=== PATIENT | female | born 1960 | race Caucasian/White ===

== ENCOUNTER → 2020-01-27 | Outpatient (CLI) | payer BC ==
[2015-03-29 07:59] VITALS: BP 132/72
[~2020-01-27] MED LIST: CRESTOR10 MG PO; LINZESS145 MCG PO; MOME17SP NS; MULT-121 PO
== END | disposition home or self-care (01) ==
LOC: LAB 13:14
PROVIDERS: ATTEND Surgery
DX: Z01.818 Encounter for other preprocedural examination (principal); Z11.59 Encounter for screening for other viral diseases; K80.20 Calculus of gallbladder without cholecystitis without obstruction; Z88.6 Allergy status to analgesic agent
CPT/HCPCS: U0003-CS

== ENCOUNTER 2020-02-02 06:04 | Day surgery (SDC) | payer BC ==
[~2020-02-02] VITALS: Ht 165.1 cm; Wt 61.5 kg
[~2020-02-02 06:04] MED LIST changes: +ceFAZolin SODIUM IV Push 1 GM VIAL. IVP ONE
[2020-02-02] MEDS ORDERED: DEXAMETHASONE SOD PHOS 4 MG/ML VIAL ONE ×2 (06:11→07:49)
[2020-02-02] MEDS ORDERED: ONDANSETRON PF 4 MG/2 ML VIAL. ONE ×2 (06:11→07:49)
[2020-02-02] MEDS ORDERED: LIDOCAINE 2% PF 5 ML VIAL. ONE (06:11)
[2020-02-02] MEDS ORDERED: PROPOFOL 10 MG/ML (20ML) VIAL. IV ONE (06:11)
[2020-02-02] MEDS ORDERED: ROCURONIUM 50 MG/5 ML VIAL. ONE (06:11)
[2020-02-02] MEDS ORDERED: SUCCINYLCHOLINE 200 MG/10 ML VIAL. ONE (06:13)
[2020-02-02] MEDS ORDERED: fentaNYL PF VIAL 250 MCG/5 ML VIAL ONE (06:52)
[2020-02-02] MEDS ORDERED: MIDAZOLAM HCL/PF 2 MG/2 ML VIAL. ONE (06:53)
[2020-02-02] MEDS ORDERED: IOHEXOL 300 MG/ML 50 ML VIAL. ONE (06:56)
[2020-02-02] MEDS ORDERED: SURGICEL HEMOSTAT 4X8 EACH. ONE (06:56)
[2020-02-02] MEDS ORDERED: BUPIVACAINE MPF 0.5% 30 ML VIAL. ONE (06:56)
[2020-02-02] MEDS ORDERED: IV RINGERS,LACTATED 1000ML 1,000 ML IV SCH (07:00)
[2020-02-02] MEDS ORDERED: ONDANSETRON PF 4 MG/2 ML VIAL. IV PRN (07:00)
[2020-02-02] MEDS ORDERED: PROCHLORPERAZINE 10 MG/2 ML VIAL. IV PRN (07:00)
[2020-02-02] MEDS ORDERED: fentaNYL PF VIAL 100 MCG/2 ML VIAL IV PRN ×2 (07:00)
[2020-02-02] MEDS ORDERED: NEOSTIGMINE METHYLSULFATE 5 MG/5 ML SYRINGE. ONE (08:04)
[2020-02-02] MEDS ORDERED: GLYCOPYRROLATE 1 MG/5 ML VIAL. ONE (08:05)
[2020-02-02] MEDS ORDERED: KETOROLAC 30 MG/ML VIAL. ONE (08:28)
[2020-02-02] MEDS ORDERED: SEVOFLURANE 31 TO 60 MINUTES. IH ONE (08:29)
--- NOTE | 2020-02-02 08:45 | RAD ---
Intraoperative cholangiogram INDICATION: Cholecystectomy TECHNIQUE: 3 images were acquired intraoperatively during injection of the cystic duct stump. Total fluoroscopy time 0.25 minutes. FINDINGS: Multiple laparoscopic ports in the included field of view are present. Injection of the cystic duct stump shows opacification of the intrahepatic biliary radicles on the right and emptying of the common bile duct into the duodenum. Filling of the left-sided hepatic bile ducts was not shown. IMPRESSION: Intraoperative cholangiogram showing patency of the common bile duct and additional findings as described. Electronically signed by: Salina Ricci MD (02/02/2020 8:42 AM) [id number]
--- NOTE | 2020-02-02 08:51 | PDOC4 ---
Operative Note Operative Note Operative Note: Preoperative Diagnosis: Symptomatic cholelithiasis Postoperative Diagnosis: Same Procedure: Laparoscopic cholecystectomy with intraoperative cholangiogram Surgeons: Dhruv Insert Operator: Chandler MORELOS Anesthesia: Gen. Estimated Blood Loss: 10 mL Specimen: Gallbladder to pathology Drains: None Complications: None Indications: The patient is a 59-year-old female who was referred with suspected symptomatic cholelithiasis. Surgical treatment was offered by means of a laparoscopic cholecystectomy. The risks of surgery were discussed which include bleeding, infection, bile duct injury, bile leak, pain, the potential for additional surgeries or procedures. The patient understands and would like to proceed. Description: The patient was taken to the operating room and laid supine on the operating table. General anesthesia was performed. The abdomen was prepped with ChloraPrep and draped in a standard surgical fashion. A small infraumbilical incision was made with a scalpel. The Veress needle was then inserted and a pneumoperitoneum was then created. A 5 mm trocar was then inserted and the laparoscope was introduced. In the upper midabdomen a 5 mm trocar was inserted and in the right upper quadrant two 2.3 mm mini lap graspers were inserted. The gallbladder was retracted cephalad. The cystic duct was dissected free from surrounding tissues. One clip was placed on the duct near the gallbladder junction. An opening was made in the duct and a cholangiocatheter placed within and secured with a clip. Using contrast dye and fluoroscopy an intraoperative cholangiogram was performed that appeared unremarkable. The clip and catheter were then withdrawn. Three clips were placed on the cystic duct and it was divided. The cystic artery was then identified, dissected free, doubly clipped and divided as well. The gallbladder was then mobilized away from the liver with cautery. The umbilical 5 millimeter trocar was exchanged for an 11 millimeter trocar. The gallbladder was then placed in an endoscopic bag and extracted at the umbilical trocar site. The fascia there was closed with an 0 Vicryl suture. All blood and irrigation fluid was suctioned and hemostasis was good. The remaining ports were removed and the pneumoperitoneum was relieved. The skin incisions were injected with half percent Marcaine with epinephrine, and all were closed using 4-0 Monocryl suture. Steri-Strips and dressings were then applied. The patient tolerated the procedure well and was sent to the recovery room in stable condition. At the end of the case all counts were correct. ASHOK GOMEZ MD Feb 02, 2020 08:51
--- NOTE | 2020-02-02 08:53 | DISCH ---
DISCHARGE INSTRUCTIONS Condition on Discharge Condition on Discharge: Stable Activity After Discharge Activity Instructions for Disc: Other, see below (no lifting over 20 lbs X 2 weeks) Driving Instructions after Dis: Other, see below (no driving while taking pain meds) Diet after Discharge Diet after Discharge: Regular Wound Incision Care Wound/Incision Care: Other, see below (may remove bandaids tomorrow and shower) Follow-Up Follow up with: Dr Gomez in office in 2 weeks, call for appointment [phone] ASHOK GOMEZ MD Feb 02, 2020 08:53
[2020-02-02] MEDS ORDERED: HYDR-3164 PO (09:23)
[2020-02-02] MEDS ORDERED: HYDROcodone/APAP 5/325MG 1 TAB TABLET PO ONE (09:30)
[2020-02-02] MEDS ORDERED: HYDROcodone/APAP 5/325MG 1 TAB TABLET ONE (09:47)
[2020-02-02 09:55] VITALS: BP 139/72
--- NOTE | 2020-02-08 10:07 | PATHOLOGY ---
[facility] Accession Number: [id number] . 01 Material submitted: . gallbladder - GALLBLADDER AND CONTENTS . 01 Clinical history: . SYMPTOMATIC CHOLELITHIASIS . 02 Diagnosis: Gallbladder, excision: - Chronic cholecystitis. - Adenomyomatous nodule, with focal pyloric metaplasia. - Lithiasis. - Negative for dysplasia and malignancy. . (MLK:mehdi; 02/08/2020) QMS 02/08/2020 0918 Local . 02 Electronically signed: . Srikanth Boyd MD, Pathologist NPI- [id number] . 01 Gross description: . The specimen is received fresh in a sealed laparoscopic bag, and the bag is placed into formalin, labeled "Shanel Vargas, gallbladder and contents". Received is an intact gallbladder measuring 7.5 x 3.2 x 2.6 cm in greatest dimensions displaying a muro-green serosal surface. The fundus of the gallbladder is firm and the surrounding serosa is inked black. Opening the specimen reveals a velvety, bile-stained mucosa with a gallbladder wall thickness of 0.1 cm. Several small black, friable calculi are present. The firm area at the fundal aspect displays a multilocular cystic structure measuring 1.9 x 1.7 cm in maximum dimensions. Ivf Embryologist sections, to include the proximal margin, are submitted in cassette A1. A traffic representative section of the cystic structure is submitted in cassette A2. (CAA; 02/03/2020) QAC/QAC 02/03/2020 1041 Local . 02 Pathologist provided ICD-10: K80.10 . 02 CPT . 991377 Specimen Comment: A courtesy copy of this report has been sent to [phone], [phone] Specimen Comment: [id number] Specimen Comment: Report sent to / DR KO Performed at: 01 [facility] [address] [id number] MD Enrique Campbell MD Phone: [phone] Performed at: 02 [facility] [address] [id number] MD Lonnie Cheema MD Phone: [phone]
== END 2020-02-02 10:30 | disposition home or self-care (01) ==
LOC: SURG 06:04
PROVIDERS: ATTEND Surgery
DX: K80.10 Calculus of gallbladder with chronic cholecystitis without obstruction (principal); F17.210 Nicotine dependence, cigarettes, uncomplicated; Z72.89 Other problems related to lifestyle; Z79.899 Other long term (current) drug therapy; Z88.8 Allergy status to other drugs, medicaments and biological substances
CPT/HCPCS: 47563; 74300; A4314; A7015; J0330; J0690; J1100; J1885; J2250; J2405; J2704; J2710; J3010; J3490; J7030; J7120; Q9967; 88304

== ENCOUNTER 2021-09-17 09:08 | Inpatient (IN) | payer BC ==
[2021-09-17] VITALS (7 sets, daily range): BP systolic 111–151; BP diastolic 45–75
[~2021-09-17] VITALS: Ht 165.1 cm; Wt 66.2 kg
[~2021-09-17 09:08] MED LIST changes: +HYDR-3164 PO; -MOME17SP NS; +MOME17SP5 NS; -ceFAZolin SODIUM IV Push 1 GM VIAL. IVP ONE
[2021-09-17] MEDS ORDERED: IV RINGERS,LACTATED 1000ML 1,000 ML IV ONE (09:30)
--- NOTE | 2021-09-17 09:42 | EKG ---
[facility] [address] [place] [address] Test Date: 2021-09-17 Test Time: 09:30:51 Pat Name: JANKI CRUZ Department: Room: Gender: F Donor Recruitment Manager: : 1960 Requested By: RADHA SULLIVAN Order Number: [id number] Reading MD: Tian Rodríguez Measurements Intervals [place] Rate: 88 P: 180 [place]: 134 QRS: 21 QRSD: 82 T: 68 QT: 370 QTc: 451 Interpretive Statements SINUS RHYTHM Electronically Signed On 09-21-2021 13:50:45 CDT by Tian Rodríguez
--- NOTE | 2021-09-17 09:42 | PHYS DOC ---
Past Medical History Past Medical History: High Cholesterol, Hypertension, Sinusitis Additional Past Medical Histor: carotid artery stenosis (50% and 69%) Past Surgical History: Cholecystectomy, Tubal ligation Additional Past Surgical Histo: ankle repair, stents RLE General Adult EDM: Chief Complaint: MULTIPLE COMPLAINTS HPI: HPI: Patient is a 60 year old female who presents with 6-week history of lightheadedness and 3-week history of facial pressure and tingling. Patient reports she has been treated with a course of several different antibiotics to treat a sinus infection over the past month or so. She underwent CT imaging for the sinus infection, which was evaluated by ENT specialist. Additionally, last week she had carotid ultrasound that showed 50% blockage and 69% blockage. The nurse practitioner in her primary care doctor's office informed her she would need to see a "machine heel seat laster." She has an appointment with vascular on the of this month and her machine heel seat laster, Dr. Rodríguez, on the of this month. While patient has had recurrent symptoms for a number of weeks, today she has noticed she is more short of breath and is having a harder time ambulating comfortably. Patient reports that when she stands up, her blood pressure and heart rate go up. She reports an associated dry mouth. Patient denies any and all pain, cough, upper and lower extremity paresthesias or weakness. Patient was seen day before yesterday at [place] emergency department for chest discomfort. Per chart review, patient did not complain of lightheadedness or facial tingling at that time. Review of Systems: Review of Systems: Constitutional: Denies fever or chills Eyes: Denies change in visual acuity, visual field deficits or discharge HENT: Denies ear pain or sore throat Respiratory: See HPI Cardiovascular: See HPI GI: Denies abdominal pain, nausea, vomiting, bloody stools or diarrhea : Denies dysuria or hematuria Musculoskeletal: Denies back pain or joint pain Integument: Denies rash or other skin lesion Neurologic: Denies headache, focal weakness or sensory changes Heart Score: C/O Chest Pain: No HEART Score for Chest Pain: HEART Score for Chest Pain Response (Comments) Value History Slighlty/Non-Suspicious 0 ECG Normal 0 Age >45 - < 65 1 Risk Factors >3 Risk Factors or Hx CAD 2 Troponin < Normal Limit 0 Total 3 Current Medications: Current Medications Medications (Trade) Dose Ordered Sig/Rosie Start Time Stop Time Status Last Admin Dose Admin Ringer's Solution 1,000 ml @ 1,000 mls/hr 1X ONCE 09/17/21 09:30 09/17/21 10:29 UNV Allergies: Allergies: Allergies Coded Allergies Type Severity Reaction Last Updated Verified acetaminophen Allergy Intermediate Rash 03/29/15 Yes oxycodone Allergy Intermediate Rash 03/29/15 Yes shrimp Allergy Unknown Unknown 01/31/20 Yes latex Adverse Reaction Intermediate Itching 01/31/20 Yes Physical Exam: PE: Constitutional: Well developed, well nourished, no acute distress, non-toxic appearance. HENT: Normocephalic, atraumatic, bilateral external ears normal, oropharynx moist, no oral exudates, nose normal. Eyes: PERRL, EOMI, conjunctiva normal, no discharge. Neck: Normal range of motion, no stridor. Cardiovascular: Heart regular rate and rhythm. No apparent murmurs, rubs or gallops. Lungs & Thorax: Bilateral breath sounds clear to auscultation. Extremities: No cyanosis, no clubbing, ROM intact, no edema. Neurologic: Alert and oriented x4, normal motor function, normal sensory function, no focal deficits noted. Current Patient Data: Vital Signs: Vital Signs Date Time Temp Pulse Resp B/P (MAP) Pulse Ox O2 Delivery O2 Flow Rate FiO2 09/17/21 12:57 82 18 139/60 (86) 97 Room Air 09/17/21 11:30 80 17 129/62 (84) 96 09/17/21 11:00 74 20 135/64 (87) 96 09/17/21 10:30 78 18 129/64 (85) 96 09/17/21 10:00 82 15 140/68 (92) 95 09/17/21 09:15 98.2 87 17 174/79 (110) 97 Room Air 98.2 EKG: EKG: EKG Interpreted by Dr. Valente at 0931: Regular rate and rhythm 88 bpm with no ectopic beats. MA 134 ms/QT 370 ms. No STEMI. Radiology/Procedures: Radiology/Procedures: PROCEDURE: CHEST AP ONLY XR CHEST 1V CLINICAL INDICATIONS: Shortness of breath, lightheaded / Spl. Instructions: / History: COMPARISON: None available. Findings: No acute lung infiltrate or pleural effusion or pulmonary edema or lung mass or pneumothorax is seen. The heart size, pulmonary vasculature, mediastinum and both meenakshi are unremarkable. IMPRESSION: No acute radiographic abnormality is seen. Electronically signed by: Asad Couch MD (09/17/2021 9:55 AM) [id number] Course & Med Decision Making: Course & Med Decision Making Pertinent Labs and Imaging studies reviewed. (See chart for details) Patient is a 60-year-old female who presents with multiple complaints. She was evaluated for chest pain day before yesterday at [facility]. While she denies chest pain today, she does complain of lightheadedness and near syncope. After fluid administration, patient symptoms are not improved. Labs are not terribly concerning, however with patient symptomology, will admit to hospitalist service for further evaluation of presyncope. Dr. Ramirez, hospitalist, gladly accepts patient for admission. Dragon Disclaimer: Dragon Disclaimer: This electronic medical record was generated, in whole or in part, using a voice recognition dictation system. Departure Departure Impression: Primary Impression: Near syncope Additional Impressions: Bilateral carotid artery stenosis Sinusitis Qualified Codes: J01.90 - Acute sinusitis, unspecified Disposition: ADMITTED INPATIENT Admitting Physician: CARRIE (James) Referrals: KAPIL KO DO (PCP) RADHA SULLIVAN Sep 17, 2021 09:42
--- NOTE | 2021-09-17 09:58 | RAD ---
XR CHEST 1V CLINICAL INDICATIONS: Shortness of breath, lightheaded / Spl. Instructions: / History: COMPARISON: None available. Findings: No acute lung infiltrate or pleural effusion or pulmonary edema or lung mass or pneumothora x is seen. The heart size, pulmonary vasculature, mediastinum and both meenakshi are unremarkable. IMPRESSION: No acute radiographic abnormality is seen. Electronically signed by: Asad Couch MD (09/17/2021 9:55 AM) [id number]
[2021-09-17 10:18] LABS: BASO % 0 % (0-3); EOS % 0 % (0-3); HEMATOCRIT 43.2 % (36.0-47.0); HEMOGLOBIN 14.4 g/dL (12.0-15.5); LYMPH # 1.4 x10^3/uL (1.0-4.8); LYMPH % 12 % (24-48); MEAN CORPUSCULAR HEMOGLOBIN 30 pg (25-35); MEAN CORPUSCULAR HGB CONC 34 g/dL (31-37); MEAN CORPUSCULAR VOLUME 90 fL (79-100); MONO # 0.3 x10^3/uL (0.0-1.1); MONO % 3 % (0-9); NEUT # 9.8 x10^3/uL (1.8-7.7); NEUT % 85 % (31-73); PLATELET COUNT 278 x10^3/uL (140-400); RED CELL DISTRIBUTION WIDTH 14.5 % (11.5-14.5); WHITE BLOOD COUNT 11.6 x10^3/uL (4.0-11.0)
[2021-09-17 10:24] LABS: CALCIUM 9.1 mg/dL (8.5-10.1); CREATININE 0.8 mg/dL (0.6-1.0); GFR 72.9; POTASSIUM 4.2 mmol/L (3.5-5.1)
[2021-09-17 10:26] LABS: ALBUMIN 3.7 g/dL (3.4-5.0); ALBUMIN/GLOBULIN RATIO 1.2 (1.0-1.7); MAGNESIUM 2.2 mg/dL (1.8-2.4); PHOSPHORUS 3.6 mg/dL (2.6-4.7); TOTAL BILIRUBIN 0.8 mg/dL (0.2-1.0); TOTAL PROTEIN 6.9 g/dL (6.4-8.2)
[2021-09-17 12:05] LABS: BACTERIA,URINE 0 /HPF (0-FEW); RBC,URINE 0 /HPF (0-2); WBC,URINE 0 /HPF (0-4)
--- NOTE | 2021-09-17 12:40 | NUR ---
PT ARRIVES ON FLOOR VIA WHEELCHAIR WITH TRANSPORTATION STAFF. SHE IS ON RA, ALERT ET ORIENTED. TRANSFERS TO BED WITH ONLY SBA. ABLE TO ANSWER ADMISSION QUESTIONS AT THIS TIME. VS ASSESSED, TELE INITIATED. CALL LIGHT IS IN REACH, AND MEAL TRAY HAS BEEN ORDERED FOR HER.
[2021-09-17] MEDS ORDERED: METO25TA4 PO (13:04)
[2021-09-17] MEDS ORDERED: ATOR80TA72 PO (13:05)
[2021-09-17] MEDS ORDERED: SULF1TAB24 PO (13:08)
[2021-09-17] MEDS ORDERED: PRED20TA PO (13:08)
[2021-09-17] MEDS ORDERED: diphenhydrAMINE 50 MG/ML VIAL IVP PRN (14:15)
[2021-09-17] MEDS ORDERED: ACETAMINOPHEN 325 MG TABLET. PO PRN (14:15)
[2021-09-17] MEDS ORDERED: ONDANSETRON PF 4 MG/2 ML VIAL. IVP PRN (14:15)
[2021-09-17] MEDS ORDERED: PROCHLORPERAZINE 10 MG/2 ML VIAL. IV PRN (14:15)
[2021-09-17] MEDS ORDERED: ZOLPIDEM 5 MG TABLET. PO PRN (14:15)
[2021-09-17] MEDS ORDERED: SENNOSIDES 8.6 MG TABLET PO PRN (14:15)
[2021-09-17] MEDS ORDERED: DOCUSATE SODIUM 100 MG CAPSULE. PO PRN (14:15)
[2021-09-17] MEDS ORDERED: diphenhydrAMINE HCL 25 MG CAPSULE PO PRN ×2 (14:15)
[2021-09-17] MEDS ORDERED: LORazepam 0.5 MG TABLET PO PRN (14:15)
[2021-09-17] MEDS ORDERED: DEXTROSE 50% 25 GM / 50ML DISP.SYRIN. IV PRN (14:15)
[2021-09-17] MEDS ORDERED: MECLIZINE HCL 12.5 MG TABLET. PO PRN (14:15)
--- NOTE | 2021-09-17 14:17 | PDOC1 ---
History and Physical Date of Service: DOS: DATE: 09/17/21 TIME: 14:14 Chief Complaint: Chief Complain: Lightheadedness. History of Present Illness: HPI: 60-year-old female with past medical history of dyslipidemia, hypertension, chronic sinusitis, recent diagnosis bilateral carotid stenosis (50-69%) who comes in with facial tingling and lightheadedness for the past month and a half. She has never had symptoms like this before. However, in the past month and half she has been trying different antibiotics such as Keflex, clindamycin, doxycycline and most recently Bactrim to treat her sinusitis. These were prescribed by her primary doctor and also ENT doctor. She was actually evaluated recently for her near syncopal symptoms and she underwent carotid evaluation. She has an appointment with vascular on the of this month and her screw remover, Dr. Rodríguez, on the of this month. While patient has had recurrent symptoms for a number of weeks, today she has noticed she is more short of breath and is having a harder time ambulating comfortably. She is also endorsing tinnitus that has been started since taking antibiotics. Patient reports that when she stands up, her blood pressure and heart rate go up. She reports an associated dry mouth. Patient denies any and all pain, cough, upper and lower extremity paresthesias or weakness. In the ED her measured blood pressure is 174/79. Past Medical/Surgical History: PMH/PSH: Past Medical History: High Cholesterol, Hypertension, Sinusitis, carotid artery stenosis (50% and 69%) Past Surgical History: Cholecystectomy, Tubal ligation, ankle repair, stents RLE Allergies: Allergies: Coded Allergies: acetaminophen (Verified Allergy, Intermediate, Rash, 03/29/15) oxycodone (Verified Allergy, Intermediate, Rash, 03/29/15) shrimp (Verified Allergy, Unknown, Unknown, 01/31/20) allergy testing showed positive allergy to shrimp latex (Verified Adverse Reaction, Intermediate, Itching, 01/31/20) from latex gloves Family History: Family History: Reviewed with no relative findings in the chart Social History: Social History: Denies any alcohol, tobacco or drug abuse. Current Medications: Current Medications Current Medications Ringer's Solution 1,000 ml @ 1,000 mls/hr 1X ONCE IV Last administered on 09/17/21at 09:30; Start 09/17/21 at 09:30; Stop 09/17/21 at 10:29; Status DC Active Scripts Active Reported Bactrim Ds Tablet (Sulfamethoxazole/Trimethoprim) 1 Each Tablet 1 Tab PO BID 21 Days Prednisone 20 Mg Tablet 0.5 Tab PO DAILY 5 Days Prednisone 20 Mg Tablet 1 Tab PO DAILY 5 Days Atorvastatin Calcium 80 Mg Tablet 80 Mg PO QHS Metoprolol Tartrate 25 Mg Tablet 25 Mg PO PRN DAILY PRN Linzess (Linaclotide) 145 Mcg Capsule 145 Mcg PO DAILY07 Multiple Vitamins (Multivitamin) 1 Each Tablet 1 Each PO DAILY Nasonex (Mometasone Furoate) 17 Gm [place].pump 2 Sprays NS DAILY ROS: Review of Systems Review of System REVIEW OF SYSTEMS: GENERAL: Denies weakness SKIN: No bruising, hair changes or rashes. EYES: No blurred, double or loss of vision. NOSE AND THROAT: No history of nosebleeds, hoarseness or sore throat. HEART: No history of palpitations, chest pain or shortness of breath on exertion. LUNGS: Denies cough, hemoptysis, wheezing or shortness of breath. GASTROINTESTINAL: Denies changes in appetite, nausea, vomiting, diarrhea or constipation. GENITOURINARY: No history of frequency, urgency, hesitancy or nocturia. NEUROLOGIC: Positive for dizziness and lightheadedness PSYCHIATRIC: No history of panic, anxiety or depression. ENDOCRINE: No history of heat or cold intolerance, polyuria or polydipsia. EXTREMITIES: Denies joint pain, pain on walking or stiffness. Physical Exam: Vital Signs: Vital Signs Date Time Temp Pulse Resp B/P (MAP) Pulse Ox O2 Delivery O2 Flow Rate FiO2 09/17/21 12:57 82 18 139/60 (86) 97 Room Air 09/17/21 09:15 98.2 98.2 Physcial Exam: General: Well developed, well nourished, no acute distress, well appearing HEENT: Pupils equally round and reactive to light, EOMI, no discharge, normal conjunctiva Neck: Supple, no nuchal rigidity, no JVD, trachea midline, no tenderness Cardiac: RRR, no murmurs, no gallops, no rubs Chest/Lungs: CTAB, no wheeze, no rhonchi, no crackles Abdomen: soft, non-distended, no guarding, no peritoneal signs, non-tender Back: No tenderness Extremities: no edema, pulses intact, non-tender,capillary refill <3 sec bilateral upper and lower extremities, Neuro: Alert and oriented x 4, no focal deficits, normal speech. No nystagmus noted. Labs: Labs: Laboratory Tests Test 09/17/21 09:59 09/17/21 11:30 White Blood Count 11.6 x10^3/uL (4.0-11.0) Red Blood Count 4.80 x10^6/uL (3.50-5.40) Hemoglobin 14.4 g/dL (12.0-15.5) Hematocrit 43.2 % (36.0-47.0) Mean Corpuscular Volume 90 fL (79-100) Mean Corpuscular Hemoglobin 30 pg (25-35) Mean Corpuscular Hemoglobin Concent 34 g/dL (31-37) Red Cell Distribution Width 14.5 % (11.5-14.5) Platelet Count 278 x10^3/uL (140-400) Neutrophils (%) (Auto) 85 % (31-73) Lymphocytes (%) (Auto) 12 % (24-48) Monocytes (%) (Auto) 3 % (0-9) Eosinophils (%) (Auto) 0 % (0-3) Basophils (%) (Auto) 0 % (0-3) Neutrophils # (Auto) 9.8 x10^3/uL (1.8-7.7) Lymphocytes # (Auto) 1.4 x10^3/uL (1.0-4.8) Monocytes # (Auto) 0.3 x10^3/uL (0.0-1.1) Eosinophils # (Auto) 0.0 x10^3/uL (0.0-0.7) Basophils # (Auto) 0.0 x10^3/uL (0.0-0.2) Sodium Level 139 mmol/L (136-145) Potassium Level 4.2 mmol/L (3.5-5.1) Chloride Level 103 mmol/L (98-107) Carbon Dioxide Level 24 mmol/L (21-32) Anion Gap 12 (6-14) Blood Urea Nitrogen 12 mg/dL (7-20) Creatinine 0.8 mg/dL (0.6-1.0) Estimated GFR (Cockcroft-Gault) 72.9 BUN/Creatinine Ratio 15 (6-20) Glucose Level 137 mg/dL (70-99) Calcium Level 9.1 mg/dL (8.5-10.1) Phosphorus Level 3.6 mg/dL (2.6-4.7) Magnesium Level 2.2 mg/dL (1.8-2.4) Total Bilirubin 0.8 mg/dL (0.2-1.0) Aspartate Amino Transf (AST/SGOT) 12 U/L (15-37) Alanine Aminotransferase (ALT/SGPT) 28 U/L (14-59) Alkaline Phosphatase 86 U/L (46-116) Troponin I High Sensitivity 5 ng/L (4-50) AW-Slj-T-Type Natriuretic Peptide 26 pg/mL (0-124) Total Protein 6.9 g/dL (6.4-8.2) Albumin 3.7 g/dL (3.4-5.0) Albumin/Globulin Ratio 1.2 (1.0-1.7) Urine Collection Type Unknown Urine Color (Auto) Colorless Urine Turbidity Clear Urine pH (Auto) 5.0 (<5.0-8.0) Urine Specific [place] 1.006 (1.000-1.030) Urine Protein (Auto) Negative mg/dL (Negative) Urine Glucose (Auto)(UA) >=1000 mg/dL (Negative) Urine Ketones (Auto) Negative mg/dL (Negative) Urine Blood (Auto) Trace (Negative) Urine Nitrite Negative (Negative) Urine Bilirubin (Auto) Negative (Negative) Urine Urobilinogen (Auto) Normal mg/dL (Normal) Urine Leukocyte Esterase (Auto) Negative (Negative) Urine RBC 0 /HPF (0-2) Urine WBC 0 /HPF (0-4) Urine Squamous Epithelial Cells Few /LPF Urine Bacteria 0 /HPF (0-FEW) Laboratory Tests Test 09/17/21 09:59 09/17/21 11:30 White Blood Count 11.6 x10^3/uL (4.0-11.0) Red Blood Count 4.80 x10^6/uL (3.50-5.40) Hemoglobin 14.4 g/dL (12.0-15.5) Hematocrit 43.2 % (36.0-47.0) Mean Corpuscular Volume 90 fL (79-100) Mean Corpuscular Hemoglobin 30 pg (25-35) Mean Corpuscular Hemoglobin Concent 34 g/dL (31-37) Red Cell Distribution Width 14.5 % (11.5-14.5) Platelet Count 278 x10^3/uL (140-400) Neutrophils (%) (Auto) 85 % (31-73) Lymphocytes (%) (Auto) 12 % (24-48) Monocytes (%) (Auto) 3 % (0-9) Eosinophils (%) (Auto) 0 % (0-3) Basophils (%) (Auto) 0 % (0-3) Neutrophils # (Auto) 9.8 x10^3/uL (1.8-7.7) Lymphocytes # (Auto) 1.4 x10^3/uL (1.0-4.8) Monocytes # (Auto) 0.3 x10^3/uL (0.0-1.1) Eosinophils # (Auto) 0.0 x10^3/uL (0.0-0.7) Basophils # (Auto) 0.0 x10^3/uL (0.0-0.2) Sodium Level 139 mmol/L (136-145) Potassium Level 4.2 mmol/L (3.5-5.1) Chloride Level 103 mmol/L (98-107) Carbon Dioxide Level 24 mmol/L (21-32) Anion Gap 12 (6-14) Blood Urea Nitrogen 12 mg/dL (7-20) Creatinine 0.8 mg/dL (0.6-1.0) Estimated GFR (Cockcroft-Gault) 72.9 BUN/Creatinine Ratio 15 (6-20) Glucose Level 137 mg/dL (70-99) Calcium Level 9.1 mg/dL (8.5-10.1) Phosphorus Level 3.6 mg/dL (2.6-4.7) Magnesium Level 2.2 mg/dL (1.8-2.4) Total Bilirubin 0.8 mg/dL (0.2-1.0) Aspartate Amino Transf (AST/SGOT) 12 U/L (15-37) Alanine Aminotransferase (ALT/SGPT) 28 U/L (14-59) Alkaline Phosphatase 86 U/L (46-116) Troponin I High Sensitivity 5 ng/L (4-50) RS-Ugs-J-Type Natriuretic Peptide 26 pg/mL (0-124) Total Protein 6.9 g/dL (6.4-8.2) Albumin 3.7 g/dL (3.4-5.0) Albumin/Globulin Ratio 1.2 (1.0-1.7) Urine Collection Type Unknown Urine Color (Auto) Colorless Urine Turbidity Clear Urine pH (Auto) 5.0 (<5.0-8.0) Urine Specific [place] 1.006 (1.000-1.030) Urine Protein (Auto) Negative mg/dL (Negative) Urine Glucose (Auto)(UA) >=1000 mg/dL (Negative) Urine Ketones (Auto) Negative mg/dL (Negative) Urine Blood (Auto) Trace (Negative) Urine Nitrite Negative (Negative) Urine Bilirubin (Auto) Negative (Negative) Urine Urobilinogen (Auto) Normal mg/dL (Normal) Urine Leukocyte Esterase (Auto) Negative (Negative) Urine RBC 0 /HPF (0-2) Urine WBC 0 /HPF (0-4) Urine Squamous Epithelial Cells Few /LPF Urine Bacteria 0 /HPF (0-FEW) Images: Images PROCEDURE: CHEST AP ONLY XR CHEST 1V CLINICAL INDICATIONS: Shortness of breath, lightheaded / Spl. Instructions: / History: COMPARISON: None available. Findings: No acute lung infiltrate or pleural effusion or pulmonary edema or lung mass or pneumothorax is seen. The heart size, pulmonary vasculature, mediastinum and both meenakshi are unremarkable. IMPRESSION: No acute radiographic abnormality is seen. Assessment/Plan Assessment/Plan Near syncope due to vasovagal etiology, orthostatic hypotension, cardiovascular etiology TIA, rule out CVA Tinnitus, possibly related to antibiotic use History of bilateral carotid stenosis History of dyslipidemia History of hypertension Admit to medicine for further work-up Cardiology consult Pending CT head Neurology consult for TIA work-up Continue telemetry monitoring Fall precautions Orthostatic vital signs Hold all centrally acting medications Pending medication reconciliation SCD and ambulation for DVT prophylaxis Cardiac diet Full code Discussed with RN and SW Disposition inpatient management as above Surrogate decision maker is the Justifications for Admission Other Justification ANISHA SKY MD Sep 17, 2021 14:17
[2021-09-17] MEDS: NICOTINE 14MG PATCH. TD SCH (15:00)
[2021-09-17] MEDS: IV NORMAL SALINE 1000ML BAG 1,000 ML IV SCH (15:00)
[2021-09-17] MEDS ORDERED: SODIUM CHLORIDE 0.65% NASAL SPRAY 45ML BOTTLE. NS PRN (15:45)
[2021-09-17] MEDS ORDERED: METOPROLOL TART IMMED RELEASE 25 MG TABLET. PO PRN (15:45)
--- NOTE | 2021-09-17 15:45 | NUR ---
ORTHOSTATIC VS COMPLETED, DOCUMENTED IN VS FLOW SHEET
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
--- NOTE | 2021-09-17 16:31 | PDOC2 ---
PALOMO GONZALEZ COSTUME DIRECTOR 09/17/21 1631: CARDIAC CONSULT DATE OF CONSULT Date of Consult DATE: 09/17/21 TIME: 16:24 REASON FOR CONSULT Reason for Consult: Near syncope REFERRING PHYSICIAN Referring Physician: ILDEFONSO Aguilar SOURCE Source: Chart review, Patient HISTORY OF PRESENT ILLNESS HISTORY OF PRESENT ILLNESS This is a 60 yo female who presented secondary to persistent dizziness x 1.5 months. Occurs at rest, but is more dizzy upon standing. Is associated with facial tingling, burning sensation. Feels "foggy" at times. Had near syncopal episode which prompted her arrival to the ED. She denies any chest pain, palpitations, diaphoresis, or nausea/vomiting. Reports that she has also experienced some shortness of breath over the last month and feels like her heart has been beating fast occasionally. Was recently started on metoprolol 25mg BID for hypertension. Was is [facility] two days ago for dizziness. Reports blood pressure was elevated at that time. PAST MEDICAL HISTORY Cardiovascular: HTN, Hyperlipidemia, Other (carotid disease, abdominal aortic aneurysm, PAD s/p STRAIGHTENING ROLL OPERATOR/stent to RLE ) Pulmonary: COPD PAST SURGICAL HISTORY Past Surgical History: Cholecystectomy, Other (STRAIGHTENING ROLL OPERATOR/stent to RLE) FAMILY HISTORY Family History: Heart Disease, Stroke SOCIAL HISTORY Smoke: <1 pack per day ALCOHOL: none Drugs: None Lives: with Family CURRENT MEDICATIONS CURRENT MEDICATIONS Current Medications Medications (Trade) Dose Ordered Sig/Rosie Route PRN Reason Start Time Stop Time Status Last Admin Dose Admin Ringer's Solution 1,000 ml @ 1,000 mls/hr 1X ONCE IV 09/17/21 09:30 09/17/21 10:29 DC 09/17/21 09:30 Sodium Chloride 1,000 ml @ 100 mls/hr Q10H IV 09/17/21 14:15 09/17/21 15:00 Nicotine (Nicoderm Cq 14mg) 1 patch DAILY TD 09/17/21 15:00 09/17/21 15:00 ALLERGIES ALLERGIES: Coded Allergies: acetaminophen (Verified Allergy, Intermediate, Rash, 03/29/15) oxycodone (Verified Allergy, Intermediate, Rash, 03/29/15) shrimp (Verified Allergy, Intermediate, 09/18/21) allergy testing showed positive allergy to shrimp latex (Verified Adverse Reaction, Intermediate, Itching, 8/24/20) from latex gloves ROS Review of System 14 point ROS conducted with pertinent positives noted above in hPI PHYSICAL EXAM General: Alert, Oriented X3, Cooperative, No acute distress HEENT: Atraumatic Lungs: Clear to auscultation Heart: Regular rate Abdomen: Soft, No tenderness Extremities: No edema Skin: No significant lesion Neuro: Normal speech, Sensation intact Psych/Mental Status: Mental status NL, Mood NL MUSCULOSKELETAL: Osteoarthritic changes both hands VITALS/I&O VITALS/I&O: Vital Signs Date Time Temp Pulse Resp B/P (MAP) Pulse Ox O2 Delivery O2 Flow Rate FiO2 09/17/21 15:44 77 150/61 (90) 09/17/21 15:12 Room Air 09/17/21 14:33 98.5 18 95 98.5 LABS Lab: Laboratory Tests Test 09/17/21 09:59 09/17/21 11:30 White Blood Count 11.6 x10^3/uL (4.0-11.0) H Red Blood Count 4.80 x10^6/uL (3.50-5.40) Hemoglobin 14.4 g/dL (12.0-15.5) Hematocrit 43.2 % (36.0-47.0) Mean Corpuscular Volume 90 fL (79-100) Mean Corpuscular Hemoglobin 30 pg (25-35) Mean Corpuscular Hemoglobin Concent 34 g/dL (31-37) Red Cell Distribution Width 14.5 % (11.5-14.5) Platelet Count 278 x10^3/uL (140-400) Neutrophils (%) (Auto) 85 % (31-73) H Lymphocytes (%) (Auto) 12 % (24-48) L Monocytes (%) (Auto) 3 % (0-9) Eosinophils (%) (Auto) 0 % (0-3) Basophils (%) (Auto) 0 % (0-3) Neutrophils # (Auto) 9.8 x10^3/uL (1.8-7.7) H Lymphocytes # (Auto) 1.4 x10^3/uL (1.0-4.8) Monocytes # (Auto) 0.3 x10^3/uL (0.0-1.1) Eosinophils # (Auto) 0.0 x10^3/uL (0.0-0.7) Basophils # (Auto) 0.0 x10^3/uL (0.0-0.2) Sodium Level 139 mmol/L (136-145) Potassium Level 4.2 mmol/L (3.5-5.1) Chloride Level 103 mmol/L (98-107) Carbon Dioxide Level 24 mmol/L (21-32) Anion Gap 12 (6-14) Blood Urea Nitrogen 12 mg/dL (7-20) Creatinine 0.8 mg/dL (0.6-1.0) Estimated GFR (Cockcroft-Gault) 72.9 BUN/Creatinine Ratio 15 (6-20) Glucose Level 137 mg/dL (70-99) H Calcium Level 9.1 mg/dL (8.5-10.1) Phosphorus Level 3.6 mg/dL (2.6-4.7) Magnesium Level 2.2 mg/dL (1.8-2.4) Total Bilirubin 0.8 mg/dL (0.2-1.0) Aspartate Amino Transferase (AST) 12 U/L (15-37) L Alanine Aminotransferase (ALT) 28 U/L (14-59) Alkaline Phosphatase 86 U/L (46-116) Troponin I High Sensitivity 5 ng/L (4-50) HH-Jpd-[id number]-Type Natriuretic Peptide 26 pg/mL (0-124) Total Protein 6.9 g/dL (6.4-8.2) Albumin 3.7 g/dL (3.4-5.0) Albumin/Globulin Ratio 1.2 (1.0-1.7) Urine Collection Type Unknown Urine Color (Auto) Colorless Urine Turbidity Clear Urine pH (Auto) 5.0 (<5.0-8.0) Urine Specific [place] 1.006 (1.000-1.030) Urine Protein (Auto) Negative mg/dL (Negative) Urine Glucose (Auto)(UA) >=1000 mg/dL (Negative) Urine Ketones (Auto) Negative mg/dL (Negative) Urine Blood (Auto) Trace (Negative) Urine Nitrite Negative (Negative) Urine Bilirubin (Auto) Negative (Negative) Urine Urobilinogen (Auto) Normal mg/dL (Normal) Urine Leukocyte Esterase (Auto) Negative (Negative) Urine RBC 0 /HPF (0-2) Urine WBC 0 /HPF (0-4) Urine Squamous Epithelial Cells Few /LPF Urine Bacteria 0 /HPF (0-FEW) Laboratory Tests 09/17/21 09:59 Laboratory Tests 09/17/21 09:59 ASSESSMENT/PLAN ASSESSMENT/PLAN 1. Persistent dizziness with near syncopal episode. Neurology consulted 2. Carotid artery disease; had carotid US at [facility] 2 days ago 3. Hypertension; labile 4. Hyperlipidemia; statin 5. PAD s/p STRAIGHTENING ROLL OPERATOR/stent to RLE. clinically stable. 6. Abdominal aortic aneurysm 7. Tobaccoism; discussed/encouraged cessation Recommendations Add ASA Echocardiogram TSH, lipids Orthostatic VS Obtain recent carotid US results Probable outpatient ischemic evaluation BERNARDO MATA MD 09/18/21 2030: CARDIAC CONSULT ASSESSMENT/PLAN ASSESSMENT/PLAN Patient seen and examined 09/17/21. Agree with TOOL REPAIRER BENCH's assessment and plan as s jono above PALOMO GONZALEZ APRN Sep 17, 2021 16:31 BERNARDO MATA MD Sep 18, 2021 20:30
--- NOTE | 2021-09-17 16:48 | RAD ---
CT HEAD INDICATION: Transient ischemic attack COMPARISON: None Available. Exposure: One or more of the following individualized dose reduction techniques were utilized for thi s examination: 1. Automated exposure control 2. Adjustment of the mA and/or kV according to patient size 3. Use of iterative reconstruction technique TECHNIQUE: 5 mm contiguous axial images were obtained from the skull base to the vertex in both bone and soft tissue algorithm. FINDINGS: No abnormal attenuation within the brain parenchyma. No evidence of acute intracranial hemorrhage. No extra-axial fluid collections. No mass effect or midline shift. Ventricular size is appropriate. Basal cisterns are patent. No fractures identified.Kaur-white differentiation is preserved.Globes and orbits are within normal l imits. Paranasal sinuses and mastoid air cells are clear. IMPRESSION: No acute intracranial findings. Electronically signed by: Matthieu Montanez MD (09/17/2021 4:45 PM) [id number]
[2021-09-17] MEDS: LUBIPROSTONE 24 MCG CAPSULE PO SCH (17:18)
[2021-09-17] MEDS: CITALOPRAM 20 MG TABLET. PO SCH (17:18)
[2021-09-17] MEDS ORDERED: ATORVASTATIN CALCIUM 40 MG TABLET. PO SCH (21:00)
[2021-09-17] MEDS: FLUTICASONE 50MCG/NASAL SPRAY 16GM BOTTLE. NS SCH (21:11)
[2021-09-18] MEDS: IV NORMAL SALINE 1000ML BAG 1,000 ML IV SCH ×2 (02:25→10:15)
[2021-09-18 03:00] VITALS: BP 167/69
[2021-09-18 07:00] VITALS: BP 150/62
[2021-09-18 07:51] LABS: BASO % 0 % (0-3); EOS # 0.1 x10^3/uL (0.0-0.7); EOS % 1 % (0-3); HEMATOCRIT 41.2 % (36.0-47.0); HEMOGLOBIN 13.7 g/dL (12.0-15.5); LYMPH # 5.3 x10^3/uL (1.0-4.8); LYMPH % 44 % (24-48); MEAN CORPUSCULAR HEMOGLOBIN 30 pg (25-35); MEAN CORPUSCULAR HGB CONC 33 g/dL (31-37); MEAN CORPUSCULAR VOLUME 91 fL (79-100); MONO # 0.9 x10^3/uL (0.0-1.1); MONO % 8 % (0-9); NEUT # 5.7 x10^3/uL (1.8-7.7); NEUT % 47 % (31-73); PLATELET COUNT 254 x10^3/uL (140-400); RED BLOOD COUNT 4.52 x10^6/uL (3.50-5.40); RED CELL DISTRIBUTION WIDTH 14.5 % (11.5-14.5)
[2021-09-18] MEDS ORDERED: ASPIRIN ENTERIC COATED 81 MG TABLET.DR. PO SCH (08:00)
[2021-09-18 08:16] LABS: CALCIUM 8.5 mg/dL (8.5-10.1); CREATININE 0.7 mg/dL (0.6-1.0); GFR 85.1; PHOSPHORUS 3.8 mg/dL (2.6-4.7); POTASSIUM 3.6 mmol/L (3.5-5.1)
[2021-09-18 08:20] LABS: CHOLESTEROL/HDL RATIO 3.1
--- NOTE | 2021-09-18 08:32 | PDOC ---
PALOMO GONZALEZ PHARMACY INTAKE COORDINATOR 09/18/21 0832: CARDIO Progress Notes Date and Time Date of Service 09/18/21 Time of Evaluation 1115 Subjective Subjective: No Chest Pain, No shortness of breath, No Palpitations, Other (feels 'foggy") Vitals Vitals Vital Signs Date Time Temp Pulse Resp B/P (MAP) Pulse Ox O2 Delivery O2 Flow Rate FiO2 09/18/21 07:00 98.0 94 16 150/62 (91) 95 Room Air 98.0 Weight Weight [ ] Input and Output Intake and Output Intake and Output 09/18/21 06:59 Intake Total 1900 ml Output Total 1450 ml Balance 450 ml Intake Oral 900 ml IV Total 1000 ml Output Urine Total 1450 ml Laboratory Labs Laboratory Tests Test 09/17/21 09:59 09/17/21 11:30 09/18/21 05:30 White Blood Count 11.6 x10^3/uL (4.0-11.0) 12.0 x10^3/uL (4.0-11.0) Red Blood Count 4.80 x10^6/uL (3.50-5.40) 4.52 x10^6/uL (3.50-5.40) Hemoglobin 14.4 g/dL (12.0-15.5) 13.7 g/dL (12.0-15.5) Hematocrit 43.2 % (36.0-47.0) 41.2 % (36.0-47.0) Mean Corpuscular Volume 90 fL (79-100) 91 fL (79-100) Mean Corpuscular Hemoglobin 30 pg (25-35) 30 pg (25-35) Mean Corpuscular Hemoglobin Concent 34 g/dL (31-37) 33 g/dL (31-37) Red Cell Distribution Width 14.5 % (11.5-14.5) 14.5 % (11.5-14.5) Platelet Count 278 x10^3/uL (140-400) 254 x10^3/uL (140-400) Neutrophils (%) (Auto) 85 % (31-73) 47 % (31-73) Lymphocytes (%) (Auto) 12 % (24-48) 44 % (24-48) Monocytes (%) (Auto) 3 % (0-9) 8 % (0-9) Eosinophils (%) (Auto) 0 % (0-3) 1 % (0-3) Basophils (%) (Auto) 0 % (0-3) 0 % (0-3) Neutrophils # (Auto) 9.8 x10^3/uL (1.8-7.7) 5.7 x10^3/uL (1.8-7.7) Lymphocytes # (Auto) 1.4 x10^3/uL (1.0-4.8) 5.3 x10^3/uL (1.0-4.8) Monocytes # (Auto) 0.3 x10^3/uL (0.0-1.1) 0.9 x10^3/uL (0.0-1.1) Eosinophils # (Auto) 0.0 x10^3/uL (0.0-0.7) 0.1 x10^3/uL (0.0-0.7) Basophils # (Auto) 0.0 x10^3/uL (0.0-0.2) 0.0 x10^3/uL (0.0-0.2) Sodium Level 139 mmol/L (136-145) 141 mmol/L (136-145) Potassium Level 4.2 mmol/L (3.5-5.1) 3.6 mmol/L (3.5-5.1) Chloride Level 103 mmol/L (98-107) 105 mmol/L (98-107) Carbon Dioxide Level 24 mmol/L (21-32) 27 mmol/L (21-32) Anion Gap 12 (6-14) 9 (6-14) Blood Urea Nitrogen 12 mg/dL (7-20) 12 mg/dL (7-20) Creatinine 0.8 mg/dL (0.6-1.0) 0.7 mg/dL (0.6-1.0) Estimated GFR (Cockcroft-Gault) 72.9 85.1 BUN/Creatinine Ratio 15 (6-20) Glucose Level 137 mg/dL (70-99) 91 mg/dL (70-99) Calcium Level 9.1 mg/dL (8.5-10.1) 8.5 mg/dL (8.5-10.1) Phosphorus Level 3.6 mg/dL (2.6-4.7) 3.8 mg/dL (2.6-4.7) Magnesium Level 2.2 mg/dL (1.8-2.4) 2.0 mg/dL (1.8-2.4) Total Bilirubin 0.8 mg/dL (0.2-1.0) Aspartate Amino Transf (AST/SGOT) 12 U/L (15-37) Alanine Aminotransferase (ALT/SGPT) 28 U/L (14-59) Alkaline Phosphatase 86 U/L (46-116) Troponin I High Sensitivity 5 ng/L (4-50) LT-Tbr-P-Type Natriuretic Peptide 26 pg/mL (0-124) Total Protein 6.9 g/dL (6.4-8.2) Albumin 3.7 g/dL (3.4-5.0) Albumin/Globulin Ratio 1.2 (1.0-1.7) Thyroid Stimulating Hormone (TSH) 1.109 uIU/mL (0.358-3.74) Urine Collection Type Unknown Urine Color (Auto) Colorless Urine Turbidity Clear Urine pH (Auto) 5.0 (<5.0-8.0) Urine Specific [place] 1.006 (1.000-1.030) Urine Protein (Auto) Negative mg/dL (Negative) Urine Glucose (Auto)(UA) >=1000 mg/dL (Negative) Urine Ketones (Auto) Negative mg/dL (Negative) Urine Blood (Auto) Trace (Negative) Urine Nitrite Negative (Negative) Urine Bilirubin (Auto) Negative (Negative) Urine Urobilinogen (Auto) Normal mg/dL (Normal) Urine Leukocyte Esterase (Auto) Negative (Negative) Urine RBC 0 /HPF (0-2) Urine WBC 0 /HPF (0-4) Urine Squamous Epithelial Cells Few /LPF Urine Bacteria 0 /HPF (0-FEW) Triglycerides Level 179 mg/dL (0-150) Cholesterol Level 167 mg/dL (0-200) LDL Cholesterol, Calculated 77 mg/dL (0-100) VLDL Cholesterol, Calculated 36 mg/dL (0-40) Non-HDL Cholesterol Calculated 113 mg/dL (0-129) HDL Cholesterol 54 mg/dL (40-60) Cholesterol/HDL Ratio 3.1 Physical Exam HEENT: Neck Supple W Full Motion Chest: Symmetric LUNGS: Clear to Auscultation Heart: RRR Abdomen: Soft N/T Extremities: No Edema Neurology: alert, oriented, follow commands Assessment Assessment 1. Persistent dizziness with near syncopal episode. Neurology consulted. orthos negative. CT head without acute findings 2. Carotid artery disease; recent carotid US without significant stenosis. F/u scheduled with vascular later this week 3. Hypertension; better controlled 4. Hyperlipidemia; statin 5. PAD s/p ELEMENTARY INSTRUCTIONAL COACH/stent to RLE. clinically stable. 6. Abdominal aortic aneurysm 7. Tobaccoism; discussed/encouraged cessation Recommendations Secondary prevention Echocardiogram today Probable outpatient ischemic evaluation Supportive care Justicifation of Admission Dx: Justifications for Admission: Justification of Admission Dx: Yes Comments: Dizziness BERNARDO MATA MD 09/18/212031: CARDIO Progress Notes Assessment Assessment Patient seen and examined. Agree with INSPECTOR REPAIRER's assessment and plan 2D echo showed normal LVF without any WMA Plan ischmemic eval as outpatient PALOMO GONZALEZ APRN Sep 18, 2021 08:32 BERNARDO MATA MD Sep 18, 2021 20:32
[2021-09-18] MEDS: FLUTICASONE 50MCG/NASAL SPRAY 16GM BOTTLE. NS SCH (08:46)
[2021-09-18] MEDS: CITALOPRAM 20 MG TABLET. PO SCH (08:46)
[2021-09-18] MEDS: LUBIPROSTONE 24 MCG CAPSULE PO SCH ×2 (08:46→16:35)
[2021-09-18] MEDS: NICOTINE 14MG PATCH. TD SCH (08:46)
--- NOTE | 2021-09-18 08:50 | PDOC ---
PROGRESS NOTES Date of Service DATE: 09/18/21 TIME: 08:47 Assessment Problems Medical Problems: (1) Bilateral carotid artery stenosis Status: Acute (2) Near syncope Status: Acute (3) Sinusitis Status: Acute Migraine associated dizziness Diffuse, nonlocalizing symptoms of lightheadedness without vertigo, facial numbness, headaches, history of ocular migraine. Nurse has already checked orthostatics which are negative, although the patient did have symptoms when she stood up. There is no evidence of sinusitis on the CT of the maxillofacial region done last year. The one this year does show some minimal mucosal thickening. The patient has failed to respond to several courses of antibiotics and steroids for presumed sinusitis. There is no evidence of vestibular dysfunction by history or on bedside examination. There is no evidence of intracranial abnormality. Both carotids have subcritical stenosis and would be unlikely be a cause of lightheadedness Plan Citalopram. Continue statin Hold off on starting aspirin Discontinued meclizine, not only does it not help with nonvestibular dizziness, but it is not helping this patient anyway. Outpatient MRI of the brain has already been scheduled anyway Okay to discharge I wrote out an excuse for her to be off work for up to 2 months. Follow-up with me in 6-8 weeks Subjective Still has the pressure feeling in the face and the numbness Objective Vital Signs Date Time Temp Pulse Resp B/P (MAP) Pulse Ox O2 Delivery O2 Flow Rate FiO2 09/18/21 07:00 98.0 94 16 150/62 (91) 95 Room Air 98.0 Intake and Output 09/18/21 07:00 Intake Total 1900 ml Output Total 1450 ml Balance 450 ml Intake Oral 900 ml IV Total 1000 ml Output Urine Total 1450 ml PHYSICAL EXAM Alert. Oriented to time, place and person. PERRL. EOMI. CN: no focal findings. Muscle tone: normal. Muscle strength: 5/5 DTR: 2+ Plantar reflex: Flexor Gait: not examined in bed. Sensory exam: no abnormal findings. No cerebellar signs elicited. Review of Relevant I have reviewed the following items james (where applicable) has been applied. Labs Laboratory Tests Test 09/17/21 09:59 09/17/21 11:30 09/18/21 05:30 White Blood Count 11.6 x10^3/uL (4.0-11.0) 12.0 x10^3/uL (4.0-11.0) Red Blood Count 4.80 x10^6/uL (3.50-5.40) 4.52 x10^6/uL (3.50-5.40) Hemoglobin 14.4 g/dL (12.0-15.5) 13.7 g/dL (12.0-15.5) Hematocrit 43.2 % (36.0-47.0) 41.2 % (36.0-47.0) Mean Corpuscular Volume 90 fL (79-100) 91 fL (79-100) Mean Corpuscular Hemoglobin 30 pg (25-35) 30 pg (25-35) Mean Corpuscular Hemoglobin Concent 34 g/dL (31-37) 33 g/dL (31-37) Red Cell Distribution Width 14.5 % (11.5-14.5) 14.5 % (11.5-14.5) Platelet Count 278 x10^3/uL (140-400) 254 x10^3/uL (140-400) Neutrophils (%) (Auto) 85 % (31-73) 47 % (31-73) Lymphocytes (%) (Auto) 12 % (24-48) 44 % (24-48) Monocytes (%) (Auto) 3 % (0-9) 8 % (0-9) Eosinophils (%) (Auto) 0 % (0-3) 1 % (0-3) Basophils (%) (Auto) 0 % (0-3) 0 % (0-3) Neutrophils # (Auto) 9.8 x10^3/uL (1.8-7.7) 5.7 x10^3/uL (1.8-7.7) Lymphocytes # (Auto) 1.4 x10^3/uL (1.0-4.8) 5.3 x10^3/uL (1.0-4.8) Monocytes # (Auto) 0.3 x10^3/uL (0.0-1.1) 0.9 x10^3/uL (0.0-1.1) Eosinophils # (Auto) 0.0 x10^3/uL (0.0-0.7) 0.1 x10^3/uL (0.0-0.7) Basophils # (Auto) 0.0 x10^3/uL (0.0-0.2) 0.0 x10^3/uL (0.0-0.2) Sodium Level 139 mmol/L (136-145) 141 mmol/L (136-145) Potassium Level 4.2 mmol/L (3.5-5.1) 3.6 mmol/L (3.5-5.1) Chloride Level 103 mmol/L (98-107) 105 mmol/L (98-107) Carbon Dioxide Level 24 mmol/L (21-32) 27 mmol/L (21-32) Anion Gap 12 (6-14) 9 (6-14) Blood Urea Nitrogen 12 mg/dL (7-20) 12 mg/dL (7-20) Creatinine 0.8 mg/dL (0.6-1.0) 0.7 mg/dL (0.6-1.0) Estimated GFR (Cockcroft-Gault) 72.9 85.1 BUN/Creatinine Ratio 15 (6-20) Glucose Level 137 mg/dL (70-99) 91 mg/dL (70-99) Calcium Level 9.1 mg/dL (8.5-10.1) 8.5 mg/dL (8.5-10.1) Phosphorus Level 3.6 mg/dL (2.6-4.7) 3.8 mg/dL (2.6-4.7) Magnesium Level 2.2 mg/dL (1.8-2.4) 2.0 mg/dL (1.8-2.4) Total Bilirubin 0.8 mg/dL (0.2-1.0) Aspartate Amino Transf (AST/SGOT) 12 U/L (15-37) Alanine Aminotransferase (ALT/SGPT) 28 U/L (14-59) Alkaline Phosphatase 86 U/L (46-116) Troponin I High Sensitivity 5 ng/L (4-50) ZN-Phc-S-Type Natriuretic Peptide 26 pg/mL (0-124) Total Protein 6.9 g/dL (6.4-8.2) Albumin 3.7 g/dL (3.4-5.0) Albumin/Globulin Ratio 1.2 (1.0-1.7) Thyroid Stimulating Hormone (TSH) 1.109 uIU/mL (0.358-3.74) Urine Collection Type Unknown Urine Color (Auto) Colorless Urine Turbidity Clear Urine pH (Auto) 5.0 (<5.0-8.0) Urine Specific [place] 1.006 (1.000-1.030) Urine Protein (Auto) Negative mg/dL (Negative) Urine Glucose (Auto)(UA) >=1000 mg/dL (Negative) Urine Ketones (Auto) Negative mg/dL (Negative) Urine Blood (Auto) Trace (Negative) Urine Nitrite Negative (Negative) Urine Bilirubin (Auto) Negative (Negative) Urine Urobilinogen (Auto) Normal mg/dL (Normal) Urine Leukocyte Esterase (Auto) Negative (Negative) Urine RBC 0 /HPF (0-2) Urine WBC 0 /HPF (0-4) Urine Squamous Epithelial Cells Few /LPF Urine Bacteria 0 /HPF (0-FEW) Triglycerides Level 179 mg/dL (0-150) Cholesterol Level 167 mg/dL (0-200) LDL Cholesterol, Calculated 77 mg/dL (0-100) VLDL Cholesterol, Calculated 36 mg/dL (0-40) Non-HDL Cholesterol Calculated 113 mg/dL (0-129) HDL Cholesterol 54 mg/dL (40-60) Cholesterol/HDL Ratio 3.1 Laboratory Tests Test 09/17/21 09:59 09/17/21 11:30 09/18/21 05:30 White Blood Count 11.6 x10^3/uL (4.0-11.0) 12.0 x10^3/uL (4.0-11.0) Red Blood Count 4.80 x10^6/uL (3.50-5.40) 4.52 x10^6/uL (3.50-5.40) Hemoglobin 14.4 g/dL (12.0-15.5) 13.7 g/dL (12.0-15.5) Hematocrit 43.2 % (36.0-47.0) 41.2 % (36.0-47.0) Mean Corpuscular Volume 90 fL (79-100) 91 fL (79-100) Mean Corpuscular Hemoglobin 30 pg (25-35) 30 pg (25-35) Mean Corpuscular Hemoglobin Concent 34 g/dL (31-37) 33 g/dL (31-37) Red Cell Distribution Width 14.5 % (11.5-14.5) 14.5 % (11.5-14.5) Platelet Count 278 x10^3/uL (140-400) 254 x10^3/uL (140-400) Neutrophils (%) (Auto) 85 % (31-73) 47 % (31-73) Lymphocytes (%) (Auto) 12 % (24-48) 44 % (24-48) Monocytes (%) (Auto) 3 % (0-9) 8 % (0-9) Eosinophils (%) (Auto) 0 % (0-3) 1 % (0-3) Basophils (%) (Auto) 0 % (0-3) 0 % (0-3) Neutrophils # (Auto) 9.8 x10^3/uL (1.8-7.7) 5.7 x10^3/uL (1.8-7.7) Lymphocytes # (Auto) 1.4 x10^3/uL (1.0-4.8) 5.3 x10^3/uL (1.0-4.8) Monocytes # (Auto) 0.3 x10^3/uL (0.0-1.1) 0.9 x10^3/uL (0.0-1.1) Eosinophils # (Auto) 0.0 x10^3/uL (0.0-0.7) 0.1 x10^3/uL (0.0-0.7) Basophils # (Auto) 0.0 x10^3/uL (0.0-0.2) 0.0 x10^3/uL (0.0-0.2) Sodium Level 139 mmol/L (136-145) 141 mmol/L (136-145) Potassium Level 4.2 mmol/L (3.5-5.1) 3.6 mmol/L (3.5-5.1) Chloride Level 103 mmol/L (98-107) 105 mmol/L (98-107) Carbon Dioxide Level 24 mmol/L (21-32) 27 mmol/L (21-32) Anion Gap 12 (6-14) 9 (6-14) Blood Urea Nitrogen 12 mg/dL (7-20) 12 mg/dL (7-20) Creatinine 0.8 mg/dL (0.6-1.0) 0.7 mg/dL (0.6-1.0) Estimated GFR (Cockcroft-Gault) 72.9 85.1 BUN/Creatinine Ratio 15 (6-20) Glucose Level 137 mg/dL (70-99) 91 mg/dL (70-99) Calcium Level 9.1 mg/dL (8.5-10.1) 8.5 mg/dL (8.5-10.1) Phosphorus Level 3.6 mg/dL (2.6-4.7) 3.8 mg/dL (2.6-4.7) Magnesium Level 2.2 mg/dL (1.8-2.4) 2.0 mg/dL (1.8-2.4) Total Bilirubin 0.8 mg/dL (0.2-1.0) Aspartate Amino Transf (AST/SGOT) 12 U/L (15-37) Alanine Aminotransferase (ALT/SGPT) 28 U/L (14-59) Alkaline Phosphatase 86 U/L (46-116) Troponin I High Sensitivity 5 ng/L (4-50) TY-Cvr-E-Type Natriuretic Peptide 26 pg/mL (0-124) Total Protein 6.9 g/dL (6.4-8.2) Albumin 3.7 g/dL (3.4-5.0) Albumin/Globulin Ratio 1.2 (1.0-1.7) Thyroid Stimulating Hormone (TSH) 1.109 uIU/mL (0.358-3.74) Urine Collection Type Unknown Urine Color (Auto) Colorless Urine Turbidity Clear Urine pH (Auto) 5.0 (<5.0-8.0) Urine Specific [place] 1.006 (1.000-1.030) Urine Protein (Auto) Negative mg/dL (Negative) Urine Glucose (Auto)(UA) >=1000 mg/dL (Negative) Urine Ketones (Auto) Negative mg/dL (Negative) Urine Blood (Auto) Trace (Negative) Urine Nitrite Negative (Negative) Urine Bilirubin (Auto) Negative (Negative) Urine Urobilinogen (Auto) Normal mg/dL (Normal) Urine Leukocyte Esterase (Auto) Negative (Negative) Urine RBC 0 /HPF (0-2) Urine WBC 0 /HPF (0-4) Urine Squamous Epithelial Cells Few /LPF Urine Bacteria 0 /HPF (0-FEW) Triglycerides Level 179 mg/dL (0-150) Cholesterol Level 167 mg/dL (0-200) LDL Cholesterol, Calculated 77 mg/dL (0-100) VLDL Cholesterol, Calculated 36 mg/dL (0-40) Non-HDL Cholesterol Calculated 113 mg/dL (0-129) HDL Cholesterol 54 mg/dL (40-60) Cholesterol/HDL Ratio 3.1 Medications Current Medications Ringer's Solution 1,000 ml @ 1,000 mls/hr 1X ONCE IV Last administered on 09/17/21at 09:30; Start 09/17/21 at 09:30; Stop 09/17/21 at 10:29; Status DC Sennosides (Senna) 17.2 mg PRN BID PRN PO CONSTIPATION; Start 09/17/21 at 14:15 Docusate Sodium (Colace) 100 mg PRN DAILY PRN PO HARD STOOLS; Start 09/17/21 at 14:15 Ondansetron HCl (Zofran) 4 mg PRN Q6HRS PRN IVP NAUSEA/VOMITING, 1st CHOICE; Start 09/17/21 at 14:15 Dextrose (Dextrose 50%-Water Syringe) 12.5 gm PRN Q15MIN PRN IV SEE COMMENTS; Start 09/17/21 at 14:15 Sodium Chloride 1,000 ml @ 100 mls/hr Q10H IV Last administered on 09/18/21at 02:25; Start 09/17/21 at 14:15 Acetaminophen (Tylenol) 650 mg PRN Q4HRS PRN PO TEMP OVER 100.4F OR MILD PAIN; Start 09/17/21 at 14:15 Lorazepam (Ativan) 0.5 mg PRN Q6HRS PRN PO ANXIETY / AGITATION; Start 09/17/21 at 14:15 Lorazepam (Ativan Inj) 0.25 mg PRN Q4HRS PRN IV ANXIETY / AGITATION; Start 09/17/21 at 14:15 Prochlorperazine Edisylate (Compazine) 10 mg PRN Q6HRS PRN IV NAUSEA/VOMITING, 2nd CHOICE; Start 09/17/21 at 14:15 Diphenhydramine HCl (Benadryl) 25 mg PRN Q6HRS PRN IVP ITCHING; Start 09/17/21 at 14:15 Diphenhydramine HCl (Benadryl) 25 mg PRN Q6HRS PRN PO ITCHING; Start 09/17/21 at 14:15 Diphenhydramine HCl (Benadryl) 25 mg PRN QHS PRN PO INSOMNIA, 1st CHOICE; Start 09/17/21 at 14:15 Zolpidem Tartrate (Ambien) 2.5 mg PRN QHS PRN PO INSOMNIA, 2nd CHOICE; Start 09/17/21 at 14:15 Meclizine HCl (Antivert) 12.5 mg PRN Q6HRS PRN PO DIZZINESS; Start 09/17/21 at 14:15; Stop 09/17/21 at 15:57; Status DC Nicotine (Nicoderm Cq 14mg) 1 patch DAILY TD Last administered on 09/17/21at 15:00; Start 09/17/21 at 15:00 Citalopram Hydrobromide (CeleXA) 20 mg DAILY PO Last administered on 09/17/21at 17:18; Start 09/17/21 at 16:00 Fluticasone Propionate (Flonase) 2 spray BID NS Last administered on 09/17/21at 21:11; Start 09/17/21 at 21:00 Sodium Chloride (Saline Mist Nasal) 1 marla PRN Q1HR PRN NS NASAL CONGESTION; Start 09/17/21 at 15:45 Metoprolol Tartrate (Lopressor) 25 mg PRN DAILY PRN PO SBP > 140; Start 09/17/21 at 15:45 Atorvastatin Calcium (Lipitor) 80 mg QHS PO Last administered on 09/17/21at 21:11; Start 09/17/21 at 21:00 Lubiprostone (Amitiza) 24 mcg BIDWMEALS PO Last administered on 09/17/21at 17:18; Start 09/17/21 at 17:00 Multivitamins (Thera M Plus) 1 tab DAILY PO ; Start 09/18/21 at 09:00 Aspirin (Ecotrin) 81 mg DAILYWBKFT PO ; Start 09/18/21 at 08:00; Stop 09/18/21 at 08:25; Status DC Active Scripts Active Reported Bactrim Ds Tablet (Sulfamethoxazole/Trimethoprim) 1 Each Tablet 1 Tab PO BID 21 Days Prednisone 20 Mg Tablet 0.5 Tab PO DAILY 5 Days Prednisone 20 Mg Tablet 1 Tab PO DAILY 5 Days Atorvastatin Calcium 80 Mg Tablet 80 Mg PO QHS Metoprolol Tartrate 25 Mg Tablet 25 Mg PO PRN DAILY PRN Linzess (Linaclotide) 145 Mcg Capsule 145 Mcg PO DAILY07 Multiple Vitamins (Multivitamin) 1 Each Tablet 1 Each PO DAILY Nasonex (Mometasone Furoate) 17 Gm [place].pump 2 Sprays NS DAILY Vitals/I & O Vital Sign - Last 24 Hours 09/17/21 09/17/21 09/17/21 09/17/21 09:15 10:00 10:30 11:00 Temp 98.2 98.2 Pulse 87 82 78 74 Resp 17 15 18 20 B/P (MAP) 174/79 (110) 140/68 (92) 129/64 (85) 135/64 (87) Pulse Ox 97 95 96 96 O2 Delivery Room Air 09/17/21 09/17/21 09/17/21 09/17/21 11:30 12:57 14:33 15:12 Temp 98.5 98.5 Pulse 80 82 74 Resp 17 18 18 B/P (MAP) 129/62 (84) 139/60 (86) 111/45 (67) Pulse Ox 96 97 95 O2 Delivery Room Air Room Air Room Air 09/17/21 09/17/21 09/17/21 09/17/21 15:40 15:42 15:44 19:00 Temp 98.3 98.3 Pulse 72 66 77 72 Resp 20 B/P (MAP) 140/60 (86) 151/75 (100) 150/61 (90) 144/58 (86) Pulse Ox 96 O2 Delivery Room Air 09/17/21 09/17/21 09/18/21 09/18/21 20:01 22:55 03:00 07:00 Temp 98.0 98.0 98.0 98.0 98.0 98.0 Pulse 94 69 94 Resp 20 18 16 B/P (MAP) 147/72 (97) 167/69 (101) 150/62 (91) Pulse Ox 97 94 95 O2 Delivery Room Air Room Air Room Air Room Air Intake and Output 09/17/21 09/17/21 09/18/21 15:00 23:00 07:00 Intake Total 540 ml 1360 ml Output Total 1100 ml 350 ml Balance -560 ml 1010 ml Justicifation of Admission Dx: Justifications for Admission: Justification of Admission Dx: N/A JATIN BRAN MD Sep 18, 2021 08:50
--- NOTE | 2021-09-18 08:51 | PDOC ---
Provider Note Date of Service: DATE: 09/18/21 TIME: 08:50 Provider Note Patient to be excused from work until as late as 11/18/2021 due to a medical condition. She was hospitalized 09/16-05/30 Justifications for Admission Other Justification Near syncope JATIN BRAN MD Sep 18, 2021 08:51
[2021-09-18] MEDS ORDERED: MULTIVITAMIN with MINERAL TABLET. PO SCH (09:00)
[2021-09-18 11:00] VITALS: BP 162/62
--- NOTE | 2021-09-18 12:48 | PDOC ---
[facility] PROGRESS NOTE Date of Service DOS: DATE: 09/18/21 TIME: 12:46 Chief Complaint Chief Complaint Assessment/Plan Migraine associated dizziness Near syncope due to vasovagal etiology, orthostatic hypotension, cardiovascular etiology TIA, rule out CVA Tinnitus, possibly related to antibiotic use History of bilateral carotid stenosis History of dyslipidemia History of hypertension Pending TTE results Cardiology consult Pending CT head Neurology consult for TIA work-up Continue telemetry monitoring Fall precautions Orthostatic vital signs Hold all centrally acting medications Pending medication reconciliation SCD and ambulation for DVT prophylaxis Cardiac diet Full code Discussed with RN and SW Disposition pending TTE results, if normal okay for discharge with citalopram and follow-up with neurology in 6 to 8 weeks Surrogate decision maker is the History of Present Illness History of Present Illness 60-year-old female with past medical history of dyslipidemia, hypertension, chronic sinusitis, recent diagnosis bilateral carotid stenosis (50-69%) who comes in with facial tingling and lightheadedness for the past month and a half. She has never had symptoms like this before. However, in the past month and half she has been trying different antibiotics such as Keflex, clindamycin, doxycycline and most recently Bactrim to treat her sinusitis. These were prescribed by her primary doctor and also ENT doctor. She was actually evaluated recently for her near syncopal symptoms and she underwent carotid evaluation. She has an appointment with vascular on the of this month and her bingo usher, Dr. Rodríguez, on the of this month. While patient has had recurrent symptoms for a number of weeks, today she has noticed she is more short of breath and is having a harder time ambulating comfortably. She is also endorsing tinnitus that has been started since taking antibiotics. Patient reports that when she stands up, her blood pressure and heart rate go up. She reports an associated dry mouth. Patient denies any and all pain, cough, upper and lower extremity paresthesias or weakness. 09/18/2021 No acute events overnight. Patient seen examined bedside. Symptoms have somewhat improved compared to yesterday. Currently getting echocardiogram done. Evaluated by neurology. Recommendations placed. Undergoing cardiology evaluation. Vitals/I&O Vitals/I&O: Vital Signs Date Time Temp Pulse Resp B/P (MAP) Pulse Ox O2 Delivery O2 Flow Rate FiO2 4/12/22 11:00 98.5 85 16 162/62 (95) 95 Room Air 98.5 I & O 09/17/21 09/17/21 09/18/21 15:00 23:00 07:00 Intake Total 540 ml 1360 ml Output Total 1100 ml 350 ml Balance -560 ml 1010 ml Physical Exam General: Alert, Oriented X3, Cooperative, No acute distress Heart: Regular rate Abdomen: Soft, No tenderness Extremities: No edema Skin: No significant lesion Labs Labs: Laboratory Tests Test 09/18/21 05:30 White Blood Count 12.0 x10^3/uL (4.0-11.0) Red Blood Count 4.52 x10^6/uL (3.50-5.40) Hemoglobin 13.7 g/dL (12.0-15.5) Hematocrit 41.2 % (36.0-47.0) Mean Corpuscular Volume 91 fL (79-100) Mean Corpuscular Hemoglobin 30 pg (25-35) Mean Corpuscular Hemoglobin Concent 33 g/dL (31-37) Red Cell Distribution Width 14.5 % (11.5-14.5) Platelet Count 254 x10^3/uL (140-400) Neutrophils (%) (Auto) 47 % (31-73) Lymphocytes (%) (Auto) 44 % (24-48) Monocytes (%) (Auto) 8 % (0-9) Eosinophils (%) (Auto) 1 % (0-3) Basophils (%) (Auto) 0 % (0-3) Neutrophils # (Auto) 5.7 x10^3/uL (1.8-7.7) Lymphocytes # (Auto) 5.3 x10^3/uL (1.0-4.8) Monocytes # (Auto) 0.9 x10^3/uL (0.0-1.1) Eosinophils # (Auto) 0.1 x10^3/uL (0.0-0.7) Basophils # (Auto) 0.0 x10^3/uL (0.0-0.2) Sodium Level 141 mmol/L (136-145) Potassium Level 3.6 mmol/L (3.5-5.1) Chloride Level 105 mmol/L (98-107) Carbon Dioxide Level 27 mmol/L (21-32) Anion Gap 9 (6-14) Blood Urea Nitrogen 12 mg/dL (7-20) Creatinine 0.7 mg/dL (0.6-1.0) Estimated GFR (Cockcroft-Gault) 85.1 Glucose Level 91 mg/dL (70-99) Calcium Level 8.5 mg/dL (8.5-10.1) Phosphorus Level 3.8 mg/dL (2.6-4.7) Magnesium Level 2.0 mg/dL (1.8-2.4) Triglycerides Level 179 mg/dL (0-150) Cholesterol Level 167 mg/dL (0-200) LDL Cholesterol, Calculated 77 mg/dL (0-100) VLDL Cholesterol, Calculated 36 mg/dL (0-40) Non-HDL Cholesterol Calculated 113 mg/dL (0-129) HDL Cholesterol 54 mg/dL (40-60) Cholesterol/HDL Ratio 3.1 Assessment and Plan Assessmemt and Plan Problems Medical Problems: (1) Bilateral carotid artery stenosis Status: Acute (2) Near syncope Status: Acute (3) Sinusitis Status: Acute Comment Review of Relevant I have reviewed the following items james (where applicable) has been applied. Medications: Current Medications Medications (Trade) Dose Ordered Sig/Rosie Route PRN Reason Start Time Stop Time Status Last Admin Dose Admin Sodium Chloride 1,000 ml @ 100 mls/hr Q10H IV 09/17/21 14:15 09/18/21 02:25 Nicotine (Nicoderm Cq 14mg) 1 patch DAILY TD 09/17/21 15:00 09/18/21 08:46 Citalopram Hydrobromide (CeleXA) 20 mg DAILY PO 09/17/21 16:00 09/18/21 08:46 Fluticasone Propionate (Flonase) 2 spray BID NS 09/17/21 21:00 09/18/21 08:46 Atorvastatin Calcium (Lipitor) 80 mg QHS PO 09/17/21 21:00 09/17/21 21:11 Lubiprostone (Amitiza) 24 mcg BIDWMEALS PO 09/17/21 17:00 09/18/21 08:46 Multivitamins (Thera M Plus) 1 tab DAILY PO 09/18/21 09:00 09/18/21 08:45 Justifications for Admission Other Justification Near syncope ANISHA SKY MD Sep 18, 2021 12:48
--- NOTE | 2021-09-18 12:49 | NUR ---
SS following for discharge planning. SS reviewed pt chart and discussed with pt RN. Pt is from home with spouse and is currently on room air. Cardiology and Neurology consulted. ECHO pending. Discharge plan is currently to home when medically ready for discharge. SS will continue to follow for discharge planning.
[2021-09-18 15:00] VITALS: BP 134/57
--- NOTE | 2021-09-18 16:19 | CARD ---
MR#: [id number] Date of Study: 09/18/2021 Ordering Physician: PALOMO GONZALEZ, Referring Physician: PALOMO GONZALEZ, Tech: Josette Riojas [facility] APPROVED REPORT EXAM: Two-dimensional and M-mode echocardiogram with Doppler and color Doppler. Other Information Quality : AverageHR: 80bpm Rhythm : NSR INDICATION Dizziness and Vertigo RISK FACTORS Hypertension 2D DIMENSIONS RVDd2.6 (2.9-3.5cm)Left Atrium(2D)3.5 (1.6-4.0cm) IVSd0.7 (0.7-1.1cm)Aortic Root(2D)2.6 (2.0-3.7cm) LVDd4.0 (3.9-5.9cm)LVOT Diameter2.1 (1.8-2.4cm) PWd0.9 (0.7-1.1cm)LVDs2.1 (2.5-4.0cm) FS (%) 47.0 %SV54.3 ml LVEF(%)79.0 (>50%) Aortic Valve AoV Peak [place].115.4cm/sAoV VTI26.9cm AO Peak GR.5.3mmHgLVOT Peak [place].99.8cm/s AO Mean GR.2mmHgAVA (VMAX)3.06cm2 Mitral Valve MV E Fgbbmkiu202.9cm/sMV DECEL [id number] MV A Awxsyvri781.4cm/sE/A Ratio1.0 Pulmonary Valve PV Peak Zcbnqfqm308.2cm/s LEFT VENTRICLE The left ventricle is normal size. There is normal left ventricular wall thickness. The left ventricu lar systolic function is normal and the ejection fraction is within normal range. Estimated ejection fraction 60%. There is normal LV segmental wall motion. The left ventricular diastolic function and f illing is normal for age. RIGHT VENTRICLE The right ventricle is normal size. There is normal right ventricular wall thickness. The right ventr icular systolic function is normal. ATRIA The left atrium size is normal. The right atrium size is normal. The interatrial septum is intact wit h no evidence for an atrial septal defect or patent foramen ovale as noted on 2-D or Doppler imaging. AORTIC VALVE The aortic valve is normal in structure and function. Doppler and Color Flow revealed no significant aortic regurgitation. There is no significant aortic valvular stenosis. MITRAL VALVE The mitral valve is normal in structure and function. There is no evidence of mitral valve prolapse. There is no mitral valve stenosis. Doppler and Color-flow revealed trace mitral regurgitation. TRICUSPID VALVE The tricuspid valve is normal in structure and function. Doppler and Color Flow revealed no tricuspid valve regurgitation noted. There is no tricuspid valve stenosis. PULMONIC VALVE Doppler and Color Flow revealed no pulmonic valvular regurgitation. There is no pulmonic valvular tera nosis. GREAT VESSELS The aortic root is normal in size. The ascending aorta is normal in size. The IVC is normal in size a nd collapses >50% with inspiration. PERICARDIAL EFFUSION There is no evidence of significant pericardial effusion. Critical Notification Critical Value: No <Conclusion> The left ventricular systolic function is normal and the ejection fraction is within normal range. E stimated ejection fraction 60%. There is normal LV segmental wall motion. Signed by : Romeo Zafar, Electronically Approved : 09/18/2021 16:19:10
[2021-09-18] MEDS ORDERED: CITA20TA9 PO (16:47)
--- NOTE | 2021-09-18 16:48 | DISCH ---
DISCHARGE INSTRUCTIONS Condition on Discharge Condition on Discharge: Stable Activity After Discharge Activity Instructions for Disc: Activity as tolerated Exercise Instruction after Dis: Walk 30 min, 5 x per week Driving Instructions after Dis: Other, see below Diet after Discharge Diet after Discharge: Regular Liquid Texture: Thin Liquid Wound Incision Care Wound/Incision Care: No wound care needed Checks after Discharge Checks after discharge: Check blood press - daily, Check your Temp as needed Follow-Up Follow up with: Dr. Pete in 6-8 weeks [phone] Follow Up With: Primary care provider in 2 weeks Treatment/Equipment after DC Adaptive Equipment Issued: None ANISHA SKY MD Sep 18, 2021 16:48
--- NOTE | 2021-09-18 18:00 | NUR ---
Discharge Note: CHIKI CRUZ [facility] Discharge instructions and discharge home medications reviewed with Patient and a copy given. All questions have been answered and understanding verbalized. The following instructions and handouts were given: citalopram, migraines Patient discharged to home with family via wheelchair.
== END 2021-09-18 18:00 | disposition home or self-care (01) | DRG 312 ==
LOC: ER 09:08 → 6 SOUTH 11:47
PROVIDERS: ADMIT Internal Medicine; ATTEND Internal Medicine
DX: I95.1 Orthostatic hypotension (principal); I65.23 Occlusion and stenosis of bilateral carotid arteries; H93.19 Tinnitus, unspecified ear; E78.00 Pure hypercholesterolemia, unspecified; E78.5 Hyperlipidemia, unspecified; F17.210 Nicotine dependence, cigarettes, uncomplicated; G43.909 Migraine, unspecified, not intractable, without status migrainosus; I10 Essential (primary) hypertension; K21.9 Gastro-esophageal reflux disease without esophagitis; M19.90 Unspecified osteoarthritis, unspecified site; I71.4 Abdominal aortic aneurysm, without rupture; I73.9 Peripheral vascular disease, unspecified; J43.9 Emphysema, unspecified; J01.90 Acute sinusitis, unspecified; Z82.3 Family history of stroke; Z85.828 Personal history of other malignant neoplasm of skin; Z98.62 Peripheral vascular angioplasty status; Z90.49 Acquired absence of other specified parts of digestive tract; Z98.51 Tubal ligation status; Z88.5 Allergy status to narcotic agent; Z88.8 Allergy status to other drugs, medicaments and biological substances; Z91.040 Latex allergy status
CPT/HCPCS: 36415; 70450; 71045; 80048; 80053; 80061; 81001; 83735; 83880; 84100; 84443; 84484; 85025; 93005; 93306; 96360; J7030; J7120; 99285-25; C8929; G0378